=== PATIENT | female | born 1965 | race Caucasian/White ===

== ENCOUNTER 2020-08-14 09:58 | Outpatient (CLI) | payer BC | END 2020-08-14 09:59 | disposition home or self-care (01) | LOC: CSHMAMMO 09:58 | PROVIDERS: ATTEND Family Medicine | DX: Z12.31 Encounter for screening mammogram for malignant neoplasm of breast (principal) | CPT/HCPCS: 77063; 77067 ==

== ENCOUNTER 2021-12-14 08:54 | Outpatient (CLI) | payer BC | END 2021-12-14 08:55 | disposition home or self-care (01) | LOC: CSHMAMMO 08:54 | PROVIDERS: ATTEND Family Medicine | DX: Z12.31 Encounter for screening mammogram for malignant neoplasm of breast (principal) | CPT/HCPCS: 77063; 77067 ==

== ENCOUNTER 2023-06-05 13:06 | Emergency (ER) | payer BC ==
[2023-06-05] MEDS ORDERED: Lidocaine 1% (PF) 30 ML VIAL ONE (13:28)
[2023-06-05] MEDS ORDERED: Boostrix 0.5 ML (Tdap) VIAL (>/=7 yrs of age) ONE (13:34)
== END 2023-06-05 14:12 | disposition home or self-care (01) ==
LOC: CSHERS 13:06
DX: S68.127A Partial traumatic metacarpophalangeal amputation of left little finger, initial encounter (principal); I10 Essential (primary) hypertension; E11.9 Type 2 diabetes mellitus without complications; W26.8XXA Contact with other sharp object(s), not elsewhere classified, initial encounter; Y93.G3 Activity, cooking and baking; Z23 Encounter for immunization
CPT/HCPCS: 90471; 90715; J2001

== ENCOUNTER 2024-01-27 08:22 | Outpatient (CLI) | payer BC | END 2024-01-27 08:23 | disposition home or self-care (01) | LOC: CSHULT 08:22 | PROVIDERS: ATTEND Internal Medicine | DX: K74.60 Unspecified cirrhosis of liver (principal); Z80.0 Family history of malignant neoplasm of digestive organs; Z86.010 Personal history of colon polyps; D50.9 Iron deficiency anemia, unspecified; K31.819 Angiodysplasia of stomach and duodenum without bleeding; R18.8 Other ascites; N28.1 Cyst of kidney, acquired; Z90.49 Acquired absence of other specified parts of digestive tract; Z90.5 Acquired absence of kidney | CPT/HCPCS: 76700 ==

== ENCOUNTER 2025-02-05 13:47 | Outpatient (CLI) | payer BC | END 2025-02-05 13:48 | disposition home or self-care (01) | LOC: CSHULT 13:47 | PROVIDERS: ATTEND Internal Medicine | DX: K74.60 Unspecified cirrhosis of liver (principal); Z80.0 Family history of malignant neoplasm of digestive organs; Z86.0100 Personal history of colon polyps, unspecified; K76.9 Liver disease, unspecified; R16.1 Splenomegaly, not elsewhere classified; Z90.5 Acquired absence of kidney | CPT/HCPCS: 76700 ==

== ENCOUNTER 2025-02-15 10:02 | Outpatient (CLI) | payer BC | END 2025-02-15 10:03 | disposition home or self-care (01) | LOC: CSHMAMMO 10:02 | PROVIDERS: ATTEND Family Medicine | DX: Z12.31 Encounter for screening mammogram for malignant neoplasm of breast (principal); Z80.3 Family history of malignant neoplasm of breast; Z85.528 Personal history of other malignant neoplasm of kidney | CPT/HCPCS: 77063; 77067 ==